=== PATIENT | female | born 1995 | race Caucasian/White ===

== ENCOUNTER 2018-01-22 19:30 | Emergency (ER) | payer OTHER ==
[~2018-01-22] VITALS: Ht 152.4 cm; Wt 77.1 kg
[2018-01-22 19:40] VITALS: BP 123/68
--- NOTE | 2018-01-22 19:43 | NUR ---
TO LOBBY A/W BED, ADRIEL RUVALCABA NOTED
[2018-01-22 20:30] LABS: HEMATOCRIT 41.6 % (36-48); HEMOGLOBIN 13.4 g/dL (12.0-16.0); MEAN CORPUSCULAR VOLUME 77.3 fL (80-94); RED BLOOD CELL COUNT(AUTO) 5.39 MIL/uL (4.20-5.40); WHITE BLOOD COUNT (AUTO) 7.6 K/uL (4.8-10.8)
[2018-01-22 20:31] LABS: BASOPHILS % (AUTO) 0.6 % (0.0-2.0); EOSINOPHILS % (AUTO) 2.6 % (0.0-4.0); LYMPHOCYTES % (AUTO) 21.1 % (20.5-51.1); MEAN CORPUSCULAR HEMOGLOBIN 25 pg (27-31); MEAN CORPUSCULAR HGB CONC 32 g/dL (33-37); MONOCYTES % (AUTO) 4.8 % (1.7-9.3); NEUTROPHILS % (AUTO) 70.9 % (42.2-75.2); PLATELET COUNT (AUTO) 271 K/uL (140-450); RED CELL DISTRIBUTION WIDTH 16.5 % (11.6-13.7)
[2018-01-22 20:36] LABS: ANION GAP 9.7 (8-16); CARBON DIOXIDE 29.1 mmol/L (21-32); CREATININE 0.8 mg/dL (0.6-1.3); POTASSIUM 3.8 mmol/L (3.5-5.1)
[2018-01-22 20:42] LABS: ALBUMIN 3.9 g/dL (3.4-5.0); TOTAL BILIRUBIN 0.7 mg/dL (0.0-1.0)
--- NOTE | 2018-01-22 21:17 | NUR ---
PT C/O CP RADIATING TO LUQ AND RUQ OF ABD SINCE AND STOPPING HYDROCODONE. 11/11 ACHING. NO OTHER COMPLAINTS. EKG OBTAINED AT THIS TIME.
--- NOTE | 2018-01-22 21:45 | NUR ---
EKG PERFORMED AT BEDSIDE. PT COVERED IN CLOTHES DURING PROCEDURE. NORMAL SINUS RHYTHM
[2018-01-22] MEDS ORDERED: KETOROLAC 60 MG/2 ML VIAL IM ONE (23:35)
[2018-01-23 00:07] VITALS: BP 120/78
--- NOTE | 2018-01-23 00:07 | NUR ---
Patient discharged with v/s stable. Written and verbal after care instructions given and explained. Patient alert, oriented and verbalized understanding of instructions. Ambulatory with steady gait. All questions addressed prior to discharge. ID band removed. Patient advised to follow up with PMD. Rx of PRILOSEC given. Patient educated on indication of medication including possible reaction and side effects. Opportunity to ask questions provided and answered.
== END 2018-01-23 00:07 | disposition home or self-care (01) ==
LOC: MED 19:30
DX: R10.13 Epigastric pain (principal); R68.83 Chills (without fever); R11.0 Nausea
CPT/HCPCS: 36415; 71046; 80053; 81002; 81025; 83690; 85025; 93005; 96372; 99285; J1885; 99284

== ENCOUNTER 2019-06-17 16:02 | Emergency (ER) | payer OTHER ==
[~2019-06-17] VITALS: Ht 154.9 cm; Wt 85.8 kg
[2019-06-17 16:21] VITALS: BP 119/62
--- NOTE | 2019-06-17 16:41 | NUR ---
24 Y/O F C/O VAGINAL BLEEDING AND ABDOMINAL CRAMPING X 1 DAY. PT STATES SHE IS . PT DENIES N/V/D. PT HAS BEEN USING 3-4 PADS SINCE YESTERDAY. PT POSITIONED FOR COMFORT, UA COLLECTED. AT BEDSIDE. MICHELLE
--- NOTE | 2019-06-17 16:53 | NUR ---
MD AT BEDSIDE EXAMINING PATIENT.
[2019-06-17] MEDS ORDERED: ACETAMINOPHEN 325 MG TAB PO ONE (16:55)
--- NOTE | 2019-06-17 17:07 | NUR ---
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
[2019-06-17 17:31] LABS: BASOPHILS % (AUTO) 0.3 % (0.0-2.0); EOSINOPHILS # (AUTO) 0.1 K/uL (0-0.4); EOSINOPHILS % (AUTO) 2.2 % (0.0-4.0); HEMOGLOBIN 13.1 g/dL (12.0-16.0); LYMPHOCYTES # (AUTO) 1.6 K/uL (2.5-16.5); LYMPHOCYTES % (AUTO) 24.5 % (20.5-51.1); MEAN CORPUSCULAR HEMOGLOBIN 27 pg (27-31); MEAN CORPUSCULAR HGB CONC 33 g/dL (33-37); MEAN CORPUSCULAR VOLUME 83.1 fL (80-94); MONOCYTES # (AUTO) 0.4 K/uL (0.8-1.0); MONOCYTES % (AUTO) 5.6 % (1.7-9.3); NEUTROPHILS # (AUTO) 4.4 K/uL (1.8-7.7); NEUTROPHILS % (AUTO) 67.4 % (42.2-75.2); PLATELET COUNT (AUTO) 228 K/uL (140-450); RED BLOOD CELL COUNT(AUTO) 4.82 MIL/uL (4.20-5.40); RED CELL DISTRIBUTION WIDTH 15.1 % (11.6-13.7); WHITE BLOOD COUNT (AUTO) 6.5 K/uL (4.8-10.8)
--- NOTE | 2019-06-17 19:10 | NUR ---
RECIVED REPORT FROM ALIREZA SUTTON. CONTINUATION OF CARE.
--- NOTE | 2019-06-17 19:13 | NUR ---
REPORT GIVEN TO LESLEY BUTLER FOR CHANGE OF SHIFT.
--- NOTE | 2019-06-17 19:47 | NUR ---
PT RESTING IN BED, AAO X 4. RESPIRATIONS ARE EVEN AND UNLABORED. 0/10 PAIN AT THIS TIME. SKIN IS WARM AND DRY TO TOUCH. VSS.
[2019-06-17 20:50] VITALS: BP 118/68
--- NOTE | 2019-06-17 20:50 | NUR ---
Patient discharged with v/s stable. Written and verbal after care instructions given and explained. Patient verbalized understanding. Ambulatory with steady gait. All questions addressed prior to discharge. Advised to follow up with PMD.
== END 2019-06-17 20:50 | disposition home or self-care (01) ==
LOC: MED 16:02
DX: O20.0 Threatened abortion (principal); Z3A.01 Less than 8 weeks gestation of pregnancy
CPT/HCPCS: 36415; 76801; 81002; 81025; 84702; 85025; 86900; 86901; 99284; Q0092